=== PATIENT | male | born 1955 | race Caucasian/White ===

== ENCOUNTER 2017-03-05 13:16 | Day surgery (SDC) | payer OTHER ==
[~2017-03-05] VITALS: Ht 180.3 cm; Wt 97.6 kg
[2017-03-05 14:46] VITALS: Ht 180.3 cm; Wt 97.6 kg
[2017-03-05] MEDS ORDERED: RISPERDAL (14:54)
[2017-03-05] MEDS ORDERED: SIMVASTATIN (14:54)
[2017-03-05] MEDS ORDERED: PAROXETINE (14:54)
[2017-03-05] MEDS ORDERED: GLYBURIDE (14:54)
[2017-03-05] MEDS ORDERED: TRAZODONE (14:54)
[2017-03-05] MEDS ORDERED: METFORMIN (14:54)
[2017-03-05 15:30] VITALS: BP 92/69; PULSE 78; RESP 18
[2017-03-05] MEDS ORDERED: PROPOFOL 60 ML ONE (16:16)
[2017-03-05] MEDS ORDERED: LIDOCAINE 2% (SDV) 5 ML INJ ONE (16:16)
[2017-03-05 16:54] VITALS: BP 106/67; PULSE 74; RESP 20
[2017-03-05 17:20] VITALS: BP 116/67; PULSE 84; RESP 16
--- NOTE | 2017-03-05 18:39 | GILP ---
DATE OF PROCEDURE: NAME OF PROCEDURES: Colonoscopy, biopsy and polypectomy. SURGEON: Ada Benavides MD PREOPERATIVE DIAGNOSIS: Positive occult blood in stool. POSTOPERATIVE DIAGNOSES: 1. Colonoscopy all the way to the cecum. 2. Poor prep making the exam suboptimal. 3. Sigmoid colon polyp was removed using the snare and electrocautery. 4. Small sigmoid colon polyp was removed using the biopsy forceps. 5. Internal hemorrhoids. INDICATION FOR THE PROCEDURE: Mr. Alfredo Brown is a 61-year-old male patient who was noted to have p ositive occult blood in stool. The patient had history of colon polyps. The patient was scheduled for colonoscopy for further evaluation. The procedure and possible complications were well explained to the patient. The patient understood and consented to the procedure. DESCRIPTION OF PROCEDURE: Under the influence of anesthesia, the colonoscope was carefully introduc ed in the rectum and, under direct vision, it was advanced all the way to the cecum. FINDINGS: The patient had poor prep making the exam suboptimal. The patient was noted to have a si gmoid colon polyp and it was removed using the snare and electrocautery. The patient also had a sma ll sigmoid colon polyp and it was removed using the biopsy forceps. He had internal hemorrhoids. He tolerated the procedure very well and there was no complication from the procedure. At the end o f the procedure, he was awake with stable vital signs and he was discharged home to the care of his family. IMPRESSION: 1. Colonoscopy all the way to the cecum. 2. Poor prep making the exam suboptimal. 3. Sigmoid colon polyp was removed using the snare and electrocautery. 4. Small sigmoid colon polyp was removed using the biopsy forceps. 5. Internal hemorrhoids. PLAN: 1. Await histopathology report. 2. Because of the poor prep and suboptimal nature of the examination, the patient will need repeat colonoscopy with better preparation in 1 year. Dictated By: ADA BENAVIDES MD GD/YOVANI Conf#: [id number] DID#: [id number] CC: ADA BENAVIDES MD;*EndCC*
== END 2017-03-05 18:52 | disposition home or self-care (01) ==
LOC: GIL 13:16
PROVIDERS: ATTEND Internal Medicine Gastroenterology
DX: D12.5 Benign neoplasm of sigmoid colon (principal); K64.8 Other hemorrhoids; E11.9 Type 2 diabetes mellitus without complications; E78.5 Hyperlipidemia, unspecified; E66.9 Obesity, unspecified; Z68.30 Body mass index [BMI] 30.0-30.9, adult; F20.9 Schizophrenia, unspecified
CPT/HCPCS: 45380; 45385; 88305; Z7610

== ENCOUNTER 2017-12-27 09:19 | Day surgery (SDC) | END 2017-12-27 12:22 | disposition home or self-care (01) ==

== ENCOUNTER 2018-09-04 07:21 | Day surgery (SDC) | END 2018-09-04 15:25 | disposition home or self-care (01) ==